=== PATIENT | male | born 1990 | race Caucasian/White ===

== ENCOUNTER 2019-01-12 15:45 | Inpatient (IN) | payer SELFPAY ==
[2019-01-12 18:15] VITALS: BMI 19.9
--- NOTE | 2019-01-12 21:27 | HP ---
COWS - Scale Resting Pulse: 0= [place] 80 or Below Sweatin=Flushed/Facial Moisture Restless Observation: 3= Extraneous Movement Pupil Size: 2= Moderately Dilated (PUPILS = 6 MM) Bone or Joint Aches: 1= Mild Discomfort Runny Nose/ Eye Tearin= Nasal Congestion GI Upset > 30mins: 0= None Tremor Observation: 4= Gross Tremor/Twitching Yawning Observation: 1= 1-2x During Session Anxiety or Irritability: 1=Feels Anxious/Irritable Goose Flesh Skin: 0=Smooth Skin COWS Score: 15 CIWA Score Nausea/Vomitin-No Nausea/No Vomiting Muscle Tremors: 4-Moderate,w/Arms Extend Anxiety: 4-Mod. Anxious/Guarded Agitation: 3 Paroxysmal Sweats: 3 (Increased facial moisture) Orientation: 1-Uncertain about Date Tacttile Disturbances: 0-None Auditory Disturbances: 0-None Visual Disturbances: 0-None Headache: 0-None Present CIWA-Ar Total Score: 15 - Admission Criteria OAS Guidelines: Admission for Medically Managed Detox: Requires at least one of the followin. CIWA greater than 12 2. Seizures within the past 24 hours 3. Delirium tremens within the past 24 hours 4. Hallucinations within the past 24 hours 5. Acute intervention needed for co occurring medical disorder 6. Acute intervention needed for co occurring psychiatric disorder 7. Severe withdrawal that cannot be handled at a lower level of care (continued vomiting, continued diarrhea, abnormal vital signs) requiring intravenous medication and/or fluids 8. Patient presents the following: CIWA greater than 12 Admission Criteria Met: Admission criteria met Admission ROS [facility] Chief Complaint: Alcohol and heroin withdrawal. Allergies/Adverse Reactions: Allergies Allergy/AdvReac Type Severity Reaction Status Date / Time No Known Allergies Allergy Verified 01/12/19 17:54 History of Present Illness: Here for alcohol and heroin detox. Alcohol use began at age 13. Currently drinks 1 ltr daily Heroin use began at age 25. Switched from nasal to IV use 2 months ago. Current use 10 bags. Denies sharing needles or works. Marijuana use began at age 12. Nicotine use began at age 10. Longest length sobriety 1 year. Started back 2 months ago. Hx seizures and blackouts 2 years ago. Hx 3 overdoses - last 2 months ago. Has a Narcan Kit. PMHx: Intermittent chest pain - states past EKG's wnl; States fell a month go and sustained facial and had abrasions. Tooth ache. MHHx: Anxious, insomnia, depression. Denies thoughts of harming self or others. Does not see a MH Provider regularly. States takes Seroquel 200 mg HS. States hx bi-polor. Stopped medications 1 year ago. Search Terms: Maged Jennings, 1990 Search Date: 01/12/2019 09:26:37 PM The Drug Utilization Report below displays all of the controlled substance prescriptions, if any, that your patient has filled in the last twelve months. The information displayed on this report is compiled from pharmacy submissions to the Department, and accurately reflects the information as submitted by the pharmacies. This report was requested by: Farhana Mei | Reference #: [id number] There are no results for the search terms that you entered. Exam Limitations: No Limitations - Ebola screening Have you traveled outside of the country in the last 21 days: No Have you had contact with anyone from an Ebola affected area: No Have you been sick,other than usual withdrawal symptoms: No (Denies recent measles exposure) Do you have a fever: No - Review of Systems Constitutional: Chills, Diaphoresis, Changes in sleep (Difficulty falling aslepp - takes seroquel) EENT: reports: Blurred Vision, Nose Congestion, Dental Problems Respiratory: reports: No Symptoms reported Cardiac: reports: No Symptoms Reported GI: reports: No Symptoms Reported : reports: No Symptoms Reported Musculoskeletal: reports: Back Pain (Hx herniated disc - Intermittent pain is tingling and a "7". Increases w/ standing too long; Improves w/ laying down) Integumentary: reports: Lesions (Fell a month ago - still has scratches on (R) upper eyelid and chin) Neuro: reports: Tremors Endocrine: reports: Increased Thirst Hematology: reports: No Symptoms Reported Psychiatric: reports: Judgement Intact, Orientated x3, Agitated, Anxious, Depressed (Denies thoughts of harming self or others.) Patient History - Smoking Cessation Smoking history: Current every day smoker Have you smoked in the past 12 months: Yes Aproximately how many cigarettes per day: 20 Hx Chewing Tobacco Use: Yes Initiated information on smoking cessation: Yes 'Breaking Loose' booklet given: 01/12/19 - Substance & Tx. History Hx Alcohol Use: Yes Hx Substance Use: Yes Substance Use Type: Alcohol, Heroin, Marijuana Hx Substance Use Treatment: Yes (detox, rehab) - Substances abused Alcohol Substance route: Oral Frequency: Daily Amount used: 1 LITER VODKA Age of first use: 13 Date of last use: 01/11/19 Heroin Substance route: Injection Frequency: Daily Amount used: 1 BUNDLE Age of first use: 25 Date of last use: 01/11/19 Admission Physical Exam [facility] - Vital Signs Vital Signs: Vital Signs - 24 hr 01/12/19 17:51 Temperature 98.7 F Pulse Rate 79 Respiratory 18 Rate Blood Pressure 118/73 - Physical General Appearance: Yes: Mild Distress, Tremorous, Sweating, Anxious HEENTM: Yes: EOMI, Hearing grossly Normal, Normocephalic, VENKAT (PUPILS = 6 MM), Pharynx Normal (No discoloration/no lesions), Other Respiratory: Yes: Lungs Clear, Normal Breath Sounds, No Respiratory Distress Neck: Yes: No masses,lesions,Nodules, Supple Breast: Yes: Breast Exam Deferred Cardiology: Yes: Regular Rhythm, Regular Rate, S1, S2 Abdominal: Yes: Flat, Soft, Increased Bowel Sounds Genitourinary: Yes: Within Normal Limits Back: Yes: Normal Inspection Musculoskeletal: Yes: full range of Motion, Gait Steady Extremities: Yes: Normal Capillary Refill, Tremors (Tremors at rest - increases w/ arm elevation) Neurological: Yes: evening sitter II-XII NML intact, Alert, Motor Strength 5/5 Integumentary: Yes: Normal Color, Warm, Moist (Moist feet, w/ cracked skinbetween toes and on plantars), Track Yoo (New track yoo (L) arm area. No increased erythema or induration.), Other (Swelling and increased erythema (R ) upper eyebrow area. Small closed abrasion.) Lymphatic: Yes: Within Normal Limits - Diagnostic (1) Alcohol dependence with uncomplicated withdrawal Current Visit: Yes Status: Acute (2) Opioid dependence with withdrawal Current Visit: Yes Status: Acute (3) Nicotine dependence, uncomplicated Current Visit: Yes Status: Acute Qualifiers: Nicotine product type: unspecified Qualified Code(s): F17.200 - Nicotine dependence, unspecified, uncomplicated Comment: Chews tobacco and smokes (4) Cannabis dependence, uncomplicated Current Visit: Yes Status: Chronic (5) Tooth ache Current Visit: Yes Status: Chronic (6) Abrasion Current Visit: Yes Status: Chronic (7) Tinea pedis Current Visit: Yes Status: Chronic Qualifiers: Laterality: bilateral Qualified Code(s): B35.3 - Tinea pedis (8) Chronic low back pain Current Visit: Yes Status: Chronic Qualifiers: Back pain laterality: midline Sciatica presence: unspecified whether sciatica present Qualified Code(s): M54.5 - Low back pain; G89.29 - Other chronic pain Cleared for Admission [facility] - Detox or Rehab [facility] Level of Care: Medically Managed Detox Regimen/Protocol: Methadone/Librium Claeared for Rehab Admission: No Breathalyzer - Breathalyzer Breathalyzer: 0 Urine Drug Screen - Test Device Lot number: [id number] Expiration date: 08/18/20 - Control Is test valid?: Yes - Results Drug screen NEGATIVE: No Urine drug screen results: THC-Marijuana, MOP-Opiates Inpatient Rehab Admission - Rehab Decision to Admit Inpatient rehab admission?: No
[2019-01-12] MEDS ORDERED: METHOCARBAMOL 500 MG TABLET PO PRN (21:42)
[2019-01-12] MEDS ORDERED: chlordiazePOXIDE HCL 10 MG CAPSULE PO PRN (21:42)
[2019-01-12] MEDS ORDERED: ACETAMINOPHEN 325 MG TABLET (FP) PO PRN ×2 (21:42)
[2019-01-12] MEDS ORDERED: NALOXONE HCL 0.4 MG/ML VIAL IVPUSH PRN (21:42)
[2019-01-12] MEDS ORDERED: ONDANSETRON *ODT* 4 MG TABLET SL PRN (21:42)
[2019-01-12] MEDS ORDERED: hydrOXYzine PAMOATE 25 MG CAPSULE (FP) PO PRN (21:42)
[2019-01-12] MEDS ORDERED: MAGNESIUM HYDROX 2400MG/30ML ORAL SUSPENSION 30 ML CUP PO PRN (21:42)
[2019-01-12] MEDS ORDERED: MAG HYDROX/AL HYDROX/SIMETH 30 ML UNIT-DOSE CUP PO PRN (21:42)
[2019-01-12] MEDS ORDERED: MAGNESIUM CITRATE 300 ML BOTTLE PO PRN (21:42)
[2019-01-12] MEDS ORDERED: chlordiazePOXIDE HCL 25 MG CAPSULE PO ONE (21:42)
[2019-01-12] MEDS ORDERED: BISMUTH SUBSALICYLATE 524 MG/30 ML UD PO PRN (21:42)
[2019-01-12] MEDS ORDERED: MENTHOL/PHENOL 1 EACH UD MM PRN (21:42)
[2019-01-12] MEDS ORDERED: QUEtiapine FUMARATE 100 MG TABLET (FP) PO ONE (21:47)
[2019-01-12] MEDS ORDERED: BENZOCAINE 20 % GEL TUBE MM PRN (21:48)
[2019-01-12] MEDS ORDERED: METHADONE HCL 10 MG TABLET (FOR DETOX USE ONLY) PO ONE (23:00)
[2019-01-12] MEDS: BACITRACIN 0.9 GM PACKET TP SCH (23:01)
[2019-01-12] MEDS: THIAMINE HCL 100 MG TABLET (FP) PO SCH (23:02)
[2019-01-12] MEDS: MELATONIN 5 MG TABLETS PO PRN (23:02)
[2019-01-12] MEDS: NICOTINE POLACRILEX 2 MG GUM BUC PRN (23:04)
[2019-01-12] MEDS: chlordiazePOXIDE HCL 25 MG CAPSULE PO SCH ×2 (23:15→23:16)
[2019-01-13] MEDS: chlordiazePOXIDE 5 MG CAPSULE PO SCH ×3 (06:29→22:43)
[2019-01-13] MEDS: BACITRACIN 0.9 GM PACKET TP SCH ×2 (09:51→22:42)
[2019-01-13] MEDS: PRENATAL VITAMINS W/ FOLIC ACID TABLET (FP) PO SCH (09:51)
[2019-01-13] MEDS: NICOTINE 21 MG/24 HOURS TOPICAL PATCH TD SCH (09:53)
[2019-01-13] MEDS ORDERED: METHADONE HCL 10 MG TABLET (FOR DETOX USE ONLY) PO ONE (10:00)
[2019-01-13 10:34] LABS: HEMATOCRIT 39.3 % (35.4-49); HEMOGLOBIN 13.4 GM/dL (11.7-16.9); MCH 35.8 pg (25.7-33.7); MCHC 34.2 g/dl (32.0-35.9); MEAN CELL VOLUME 104.6 fl (80-96); MEAN PLT VOLUME 7.8 fl (7.5-11.1); PLATELET COUNT 228 K/MM3 (134-434); RBC 3.76 M/mm3 (4.00-5.60); RDW 15.2 % (11.9-15.9); WHITE BLOOD COUNT 4.9 K/mm3 (4.0-10.0)
[2019-01-13 10:57] LABS: ALBUMIN 3.5 g/dl (3.4-5.0); ALK PHOS 76 U/L (45-117); ANION GAP 7 MMOL/L (8-16); BILIRUBIN,TOTAL 0.2 mg/dL (0.2-1); BLOOD UREA NITROGEN 15 mg/dL (7-18); CHLORIDE 106 mmol/L (98-107); CO2 29 mmol/L (21-32); CREATININE 0.9 mg/dL (0.55-1.3); GLUCOSE,RANDOM 80 mg/dL (74-106); POTASSIUM 4.2 mmol/L (3.5-5.1); SGOT/AST 61 U/L (15-37); SGPT/ALT 118 U/L (13-61); SODIUM 142 mmol/L (136-145); TOT PROT 6.8 g/dl (6.4-8.2)
--- NOTE | 2019-01-13 13:32 | CONSULT ---
[facility] Psychiatric Consult - Data Date of interview: 01/13/19 Admission source: [facility] Identifying data: First admission to [facility] for this 28 y/o [place]born male ([place] [facility]) self-referred for detoxification treatment (heroin, cannabis , cocaine). Examined on . Patient is , no children, homeless, currently unemployed (suspended by his boss for poor performance at work + absenteeism) and deprived of any source of income (relies on occasional donations from relatives). Substance Abuse History: Confirmed by the patient in this interview. Details in current [facility] report as follows : Smoking history: Current every day smoker. Have you smoked in the past 12 months: Yes. Aproximately how many cigarettes per day: 20. Hx Chewing Tobacco Use: Yes. Initiated information on smoking cessation: Yes. 'Breaking Loose' booklet given: 01/12/19. - Substance & Tx. History. Hx Alcohol Use: Yes. Hx Substance Use: Yes. Substance Use Type: Alcohol, Heroin, Marijuana. Hx Substance Use Treatment: Yes (detox, rehab). - Substances abused. Alcohol. Substance route: Oral. Frequency: Daily. Amount used: 1 LITER VODKA. Age of first use: 13. Date of last use: 01/11/19. Heroin. Substance route: Injection. Frequency: Daily. Amount used: 1 BUNDLE. Age of first use: 25. Date of last use: 01/11/19 Medical History: History of disc herniation and chronic lumbar pain. Psychiatric History: Patient admits to a history of two psychiatric hospitalizations ([facility]) in 2012 + 2013. Mr Handy indicates that he has been disagnosed with " MDD and Bipolar Disorder ". Has no recollection of the names of medications prescribed in the past (except for seroquel 150 mg/hs). Patient used to see a psychiatrist at the [facility] in [facility]. Dropped out of treatment many months ago. No medications taken " for two years or even more ". Patient informs of a distant suicide attempt via hanging (2012). Physical/Sexual Abuse/Trauma History: Denies history of abuse. Additional Comment: Urine drug screen results: THC-Marijuana, MOP-Opiates. Noted. Mental Status Exam - Mental Status Exam Alert and Oriented to: Time, Place, Person Cognitive Function: Good Patient Appearance: Unkempt, Disheveled Mood: Nervous, Withdrawn, Anxious Affect: Mood Congruent, Constricted Patient Behavior: Fatigued, Appropriate, Cooperative Speech Pattern: Clear, Appropriate (fluent in turkish) Voice Loudness: Normal Thought Process: Goal Oriented Thought Disorder: Not Present Hallucinations: Denies Suicidal Ideation: Denies Insight/Judgement: Poor Sleep: Poorly, Difficulty falling asleep Appetite: Good Muscle strength/Tone: Normal Gait/Station: Normal Psychiatric Findings - Problem List ([place] 1, 2,3) (1) Alcohol dependence with uncomplicated withdrawal Current Visit: Yes Status: Acute (2) Opioid dependence with withdrawal Current Visit: Yes Status: Acute (3) Cannabis dependence, uncomplicated Current Visit: Yes Status: Chronic (4) Nicotine dependence, uncomplicated Current Visit: Yes Status: Chronic Qualifiers: Nicotine product type: unspecified Qualified Code(s): F17.200 - Nicotine dependence, unspecified, uncomplicated Comment: Chews tobacco and smokes (5) Substance induced mood disorder Current Visit: Yes Status: Chronic (6) Insomnia Current Visit: Yes Status: Chronic (7) Non-compliance Current Visit: Yes Status: Chronic - Initial Treatment Plan Initial Treatment Plan: Psychoeducation. Sleep hygiene. Detoxification. Support. Motivational counseling. AA/NA meetings. Seroquel 100 mg po hs. Ordered at patient's specific request. Side effects benefits discussed with patient. Mr Jennings is in agreement with this plan of care. Consent (verbal) received by MD. Hanks.
--- NOTE | 2019-01-13 13:47 | PN ---
[facility] CIWA - CIWA Score Nausea/Vomitin-No Nausea/No Vomiting Muscle Tremors: 4-Moderate,w/Arms Extend Anxiety: 4-Mod. Anxious/Guarded Agitation: 4-Moderately Restless Paroxysmal Sweats: 3 Orientation: 0-Oriented Tacttile Disturbances: 0-None Auditory Disturbances: 0-None Visual Disturbances: 0-None Headache: 0-None Present CIWA-Ar Total Score: 15 BHS COWS - Scale Resting Pulse: 1= [place] 81-100 Sweatin=Flushed/Facial Moisture Restless Observation: 1= Difficult to Sit Still Pupil Size: 0= Normal to Room Light Bone or Joint Aches: 2= Severe Diffuse Aches Runny Nose/ Eye Tearin= Runny Nose/Eyes GI Upset > 30mins: 1= Stomach Cramp Tremor Observation of Outstretched Hands: 2= Slight Tremor Visible Yawning Observation: 2= >3x During Session Anxiety or Irritability: 2=Irritable/Anxious Goose Flesh Skin: 0=Smooth Skin COWS Score: 15 [facility] Progress Note (SOAP) Subjective: chills cold sweats nausea body aches interrupted sleep restless Objective: 01/13/19 13:46 Vital Signs Temperature 97.1 F L 01/13/19 09:57 Pulse Rate 91 H 01/13/19 09:57 Respiratory Rate 16 01/13/19 09:57 Blood Pressure 121/68 01/13/19 09:57 O2 Sat by Pulse Oximetry (%) Laboratory Tests 01/13/19 01/13/19 01/13/19 05:30 05:30 05:30 WBC 4.9 RBC 3.76 L Hgb 13.4 Hct 39.3 MCV 104.6 H MCH 35.8 H MCHC 34.2 RDW 15.2 Plt Count 228 MPV 7.8 Sodium 142 Potassium 4.2 Chloride 106 Carbon Dioxide 29 Anion Gap 7 L BUN 15 Creatinine 0.9 Creat Clearance w eGFR 100.48 Random Glucose 80 Calcium 9.0 Total Bilirubin 0.2 AST 61 H ALT 118 H Alkaline Phosphatase 76 Total Protein 6.8 Albumin 3.5 RPR Titer Nonreactive labs noted elevated ast/alt aaox3 ambulating no acute distress Assessment: 01/13/19 13:46 withdrawal sx Plan: continue detox increase fluids repeat ast/alt d/c tylenol
--- NOTE | 2019-01-13 15:19 | EKG ---
Test Reason : Blood Pressure : / mmHG Vent. Rate : 052 BPM Atrial Rate : 052 BPM P-R Int : 124 ms QRS Dur : 086 ms QT Int : 416 ms P-R-T Axes : 052 077 069 degrees QTc Int : 386 ms SINUS BRADYCARDIA WITH SINUS ARRHYTHMIA OTHERWISE NORMAL ECG NO PREVIOUS ECGS AVAILABLE Confirmed by HAYDER PERDOMO MD ([id number]) on 01/13/2019 3:19:35 PM Referred By: Confirmed By:HAYDER PERDOMO MD
[2019-01-13] MEDS: THIAMINE HCL 100 MG TABLET (FP) PO SCH (22:42)
[2019-01-13] MEDS: NICOTINE POLACRILEX 2 MG GUM BUC PRN (22:43)
[2019-01-13] MEDS: QUEtiapine FUMARATE 100 MG TABLET (FP) PO SCH (22:43)
[2019-01-14] MEDS ORDERED: chlordiazePOXIDE HCL 10 MG CAPSULE PO PRN (05:00)
[2019-01-14] MEDS: chlordiazePOXIDE HCL 10 MG CAPSULE PO SCH ×3 (06:25→22:31)
[2019-01-14] MEDS ORDERED: METHADONE HCL 10 MG TABLET (FOR DETOX USE ONLY) PO ONE (10:00)
[2019-01-14 11:10] LABS: SGOT/AST 60 U/L (15-37); SGPT/ALT 105 U/L (13-61)
--- NOTE | 2019-01-14 11:25 | PN ---
S CIWA - CIWA Score Nausea/Vomitin Muscle Tremors: 3 Anxiety: 3 Agitation: 2 Paroxysmal Sweats: 3 Orientation: 0-Oriented Tacttile Disturbances: 0-None Auditory Disturbances: 0-None Visual Disturbances: 0-None Headache: 0-None Present CIWA-Ar Total Score: 13 [facility] COWS - Scale Resting Pulse: 0= [place] 80 or Below Sweatin= Chills/Flushing Restless Observation: 1= Difficult to Sit Still Pupil Size: 0= Normal to Room Light Bone or Joint Aches: 1= Mild Discomfort Runny Nose/ Eye Tearin= None GI Upset > 30mins: 2= Nausea/Diarrhea Tremor Observation of Outstretched Hands: 2= Slight Tremor Visible Yawning Observation: 0= None Anxiety or Irritability: 2=Irritable/Anxious Goose Flesh Skin: 0=Smooth Skin COWS Score: 9 S Progress Note (SOAP) Subjective: patient c/o sweating, nausea/diarrhea, anxiety, and shakes Objective: 01/14/19 11:24 Laboratory Tests 01/13/19 01/13/19 01/13/19 05:30 05:30 05:30 WBC 4.9 RBC 3.76 L Hgb 13.4 Hct 39.3 MCV 104.6 H MCH 35.8 H MCHC 34.2 RDW 15.2 Plt Count 228 MPV 7.8 Sodium 142 Potassium 4.2 Chloride 106 Carbon Dioxide 29 Anion Gap 7 L BUN 15 Creatinine 0.9 Creat Clearance w eGFR 100.48 Random Glucose 80 Calcium 9.0 Total Bilirubin 0.2 AST 61 H ALT 118 H Alkaline Phosphatase 76 Total Protein 6.8 Albumin 3.5 RPR Titer Nonreactive 01/14/19 07:00 WBC RBC Hgb Hct MCV MCH MCHC RDW Plt Count MPV Sodium Potassium Chloride Carbon Dioxide Anion Gap BUN Creatinine Creat Clearance w eGFR Random Glucose Calcium Total Bilirubin AST 60 H ALT 105 H Alkaline Phosphatase Total Protein Albumin RPR Titer Vital Signs Temperature 98.6 F 01/14/19 09:35 Pulse Rate 69 01/14/19 09:35 Respiratory Rate 18 01/14/19 09:35 Blood Pressure 107/72 01/14/19 09:35 O2 Sat by Pulse Oximetry (%) pe: alert and oriented x 3 skin warm, +beads of sweat on forehead gi soft, nt, nd ext full rom, + tremors amb ad valentín anxious Assessment: 01/14/19 11:25 withdrawal sx Plan: continue detox encourage fluids monitor clinically
[2019-01-14] MEDS: NICOTINE 21 MG/24 HOURS TOPICAL PATCH TD SCH (11:28)
[2019-01-14] MEDS: BACITRACIN 0.9 GM PACKET TP SCH ×2 (11:28→22:30)
[2019-01-14] MEDS: cloNIDine HCL 0.1 MG TABLET PO PRN ×2 (11:28→19:38)
[2019-01-14] MEDS: IBUPROFEN 400 MG TABLET (FP) PO PRN (11:36)
[2019-01-14] MEDS: PRENATAL VITAMINS W/ FOLIC ACID TABLET (FP) PO SCH (11:39)
[2019-01-14] MEDS: THIAMINE HCL 100 MG TABLET (FP) PO SCH (22:30)
[2019-01-14] MEDS: QUEtiapine FUMARATE 100 MG TABLET (FP) PO SCH (22:31)
[2019-01-14] MEDS: NICOTINE POLACRILEX 2 MG GUM BUC PRN (22:33)
[2019-01-15] MEDS: chlordiazePOXIDE HCL 10 MG CAPSULE PO SCH (06:52)
[2019-01-15] MEDS ORDERED: METHADONE HCL 10 MG TABLET (FOR DETOX USE ONLY) PO ONE (10:00)
[2019-01-15] MEDS: BACITRACIN 0.9 GM PACKET TP SCH ×2 (10:04→22:12)
[2019-01-15] MEDS: NICOTINE 21 MG/24 HOURS TOPICAL PATCH TD SCH (10:04)
[2019-01-15] MEDS: PRENATAL VITAMINS W/ FOLIC ACID TABLET (FP) PO SCH (10:04)
[2019-01-15] MEDS: IBUPROFEN 400 MG TABLET (FP) PO PRN (10:05)
[2019-01-15] MEDS: NICOTINE POLACRILEX 2 MG GUM BUC PRN (10:05)
[2019-01-15] MEDS ORDERED: RANITIDINE HCL 150 MG TABLET (FP) PO ONE (13:45)
--- NOTE | 2019-01-15 16:41 | PN ---
S CIWA - CIWA Score Nausea/Vomitin Muscle Tremors: None Anxiety: 3 Agitation: 1-Slight > Activity Paroxysmal Sweats: 3 Orientation: 0-Oriented Tacttile Disturbances: 2-Mild Itch/Numbness/Burn Auditory Disturbances: 0-None Visual Disturbances: 1-Very Mild Sensitivity Headache: 0-None Present CIWA-Ar Total Score: 15 BHS COWS - Scale Resting Pulse: 1= [place] 81-100 Sweatin= Chills/Flushing Restless Observation: 1= Difficult to Sit Still Pupil Size: 0= Normal to Room Light Bone or Joint Aches: 2= Severe Diffuse Aches Runny Nose/ Eye Tearin= None GI Upset > 30mins: 3= Vomiting/Diarrhea Tremor Observation of Outstretched Hands: 0= None Yawning Observation: 1= 1-2x During Session Anxiety or Irritability: 2=Irritable/Anxious Goose Flesh Skin: 0=Smooth Skin COWS Score: 11 [facility] Progress Note (SOAP) Subjective: Vomiting, Diarrhea, Anxious, Interrupted Sleep, Sweating, Heartburn, Body Aches. Objective: PATIENT A & O X 3, OBSERVED AMBULATING ON UNIT UNASSISTED. IN NO ACUTE DISTRESS. 01/15/19 16:38 Vital Signs Temperature 98.4 F 01/15/19 13:26 Pulse Rate 85 01/15/19 13:26 Respiratory Rate 18 01/15/19 13:26 Blood Pressure 105/68 01/15/19 13:26 O2 Sat by Pulse Oximetry (%) Laboratory Tests 01/13/19 01/13/19 01/13/19 05:30 05:30 05:30 WBC 4.9 RBC 3.76 L Hgb 13.4 Hct 39.3 MCV 104.6 H MCH 35.8 H MCHC 34.2 RDW 15.2 Plt Count 228 MPV 7.8 Sodium 142 Potassium 4.2 Chloride 106 Carbon Dioxide 29 Anion Gap 7 L BUN 15 Creatinine 0.9 Creat Clearance w eGFR 100.48 Random Glucose 80 Calcium 9.0 Total Bilirubin 0.2 AST 61 H ALT 118 H Alkaline Phosphatase 76 Total Protein 6.8 Albumin 3.5 RPR Titer Nonreactive 01/14/19 07:00 WBC RBC Hgb Hct MCV MCH MCHC RDW Plt Count MPV Sodium Potassium Chloride Carbon Dioxide Anion Gap BUN Creatinine Creat Clearance w eGFR Random Glucose Calcium Total Bilirubin AST 60 H ALT 105 H Alkaline Phosphatase Total Protein Albumin RPR Titer LABS NOTED. RESULTS OF ADMISSION CXR (FOR HISTORY OF POSITIVE PPD) PENDING. 01/15/19 16:38 Assessment: 01/15/19 16:40 WITHDRAWAL SYMPTOMS. ELEVATED LIVER ENZYMES. Plan: CONTINUE DETOX. INCREASE DAILY PO FLUID / WATER INTAKE. ZANTAC PO FOR HEARTBURN. PATIENT SCHEDULED FOR D/C TOMORROW. PATIENT SCHEDULED TO GO TO [facility] ([place], [place]) FOR AFTERCARE.
[2019-01-15] MEDS: QUEtiapine FUMARATE 100 MG TABLET (FP) PO SCH (22:12)
[2019-01-15] MEDS: THIAMINE HCL 100 MG TABLET (FP) PO SCH (22:12)
[2019-01-15] MEDS: MELATONIN 5 MG TABLETS PO PRN (22:12)
[2019-01-16] MEDS ORDERED: METHADONE HCL 5 MG TABLET (FOR DETOX USE ONLY) PO ONE (06:00)
[2019-01-16 06:38] VITALS: BP 130/87; PULSE 73; TEMP 98.1
--- NOTE | 2019-01-16 15:08 | DS ---
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 THUS, PRE-DISCHARGE MEDICAL ASSESSMENT UNABLE TO BE DONE. PATIENT SCHEDULED TO GO TO [facility] ([place], [place]) FOR AFTERCARE. Pertinent Past History: Anxiety, Depression, Bipolar Disorder, Insomnia, Nicotine Dependence, History Of Toothache, History Of Chronic Low Back Pain, Tinea Pedis. - Physical Exam Results Vital Signs: Vital Signs Temperature 98.1 F 01/16/19 06:00 Pulse Rate 73 01/16/19 06:00 Respiratory Rate 18 01/16/19 06:00 Blood Pressure 130/87 01/16/19 06:00 O2 Sat by Pulse Oximetry (%) Pertinent Admission Physical Exam Findings: WITHDRAWAL SYMPTOMS. Laboratory Tests 01/13/19 01/13/19 01/13/19 05:30 05:30 05:30 WBC 4.9 RBC 3.76 L Hgb 13.4 Hct 39.3 MCV 104.6 H MCH 35.8 H MCHC 34.2 RDW 15.2 Plt Count 228 MPV 7.8 Sodium 142 Potassium 4.2 Chloride 106 Carbon Dioxide 29 Anion Gap 7 L BUN 15 Creatinine 0.9 Creat Clearance w eGFR 100.48 Random Glucose 80 Calcium 9.0 Total Bilirubin 0.2 AST 61 H ALT 118 H Alkaline Phosphatase 76 Total Protein 6.8 Albumin 3.5 RPR Titer Nonreactive 01/14/19 07:00 WBC RBC Hgb Hct MCV MCH MCHC RDW Plt Count MPV Sodium Potassium Chloride Carbon Dioxide Anion Gap BUN Creatinine Creat Clearance w eGFR Random Glucose Calcium Total Bilirubin AST 60 H ALT 105 H Alkaline Phosphatase Total Protein Albumin RPR Titer LABS NOTED. - Treatment Hospital Course: Detox Protocol Followed, Detoxed Safely, Responded well, Discharged Condition Good, Rehab Referral Accepted Patient has Accepted a Rehab Referral to: [facility] ([place], [place] ). - Medication Discharge Medications: Ambulatory Orders NK [No Known Home Medication] 01/12/19 - Diagnosis (1) Alcohol dependence with uncomplicated withdrawal Status: Acute (2) Opioid dependence with withdrawal Status: Acute (3) Abrasion Status: Chronic (4) Cannabis dependence, uncomplicated Status: Chronic (5) Chronic low back pain Status: Chronic Qualifiers: Back pain laterality: midline Sciatica presence: unspecified whether sciatica present Qualified Code(s): M54.5 - Low back pain; G89.29 - Other chronic pain (6) Insomnia Status: Chronic Qualifiers: Insomnia type: unspecified Qualified Code(s): G47.00 - Insomnia, unspecified (7) Nicotine dependence, uncomplicated Status: Chronic Qualifiers: Nicotine product type: unspecified Qualified Code(s): F17.200 - Nicotine dependence, unspecified, uncomplicated (8) Non-compliance Status: Chronic (9) Substance induced mood disorder Status: Chronic (10) Tinea pedis Status: Chronic Qualifiers: Laterality: bilateral Qualified Code(s): B35.3 - Tinea pedis (11) Tooth ache Status: Chronic - AMA Did Patient Leave Against Medical Advice: No
== END 2019-01-16 06:25 | disposition home or self-care (01) | DRG 773 ==
LOC: YASAS 15:45 → Y6N 22:09
PROVIDERS: ADMIT Surgery; ATTEND Surgery
PROC: HZ2ZZZZ Detoxification Services for Substance Abuse Treatment (ICD-10-PCS; principal; 2019-01-12)
DX: F11.23 Opioid dependence with withdrawal (principal); F10.230 Alcohol dependence with withdrawal, uncomplicated; F12.20 Cannabis dependence, uncomplicated; F17.210 Nicotine dependence, cigarettes, uncomplicated; F19.24 Other psychoactive substance dependence with psychoactive substance-induced mood disorder; F31.9 Bipolar disorder, unspecified; F41.8 Other specified anxiety disorders; G47.00 Insomnia, unspecified; M54.5 Low back pain; G89.29 Other chronic pain; B35.3 Tinea pedis; K08.89 Other specified disorders of teeth and supporting structures; R94.5 Abnormal results of liver function studies
CPT/HCPCS: 36415; 71046-TC-FY; 80053; 84450; 84460; 85027; 86593; 93005; 93010; J0735